=== PATIENT | female | born 1965 | race Caucasian/White ===

== ENCOUNTER 2017-10-17 10:07 | Inpatient (IN) | payer OTHER ==
[2017-10-17 10:21] VITALS: BMI 21.4
[2017-10-17] MEDS ORDERED: LOPERAMIDE HCL 2 MG CAPSULE PO PRN (11:09)
[2017-10-17] MEDS ORDERED: P-EPHED 60MG/TRIPROLIDI 2.5MG TABLET PO PRN (11:09)
[2017-10-17] MEDS ORDERED: chlordiazePOXIDE HCL 25 MG CAPSULE PO ONE ×2 (11:09→14:30)
[2017-10-17] MEDS ORDERED: IBUPROFEN 400 MG TABLET (FP) PO PRN (11:09)
[2017-10-17] MEDS ORDERED: MENTHOL/PHENOL 1 EACH UD MM PRN (11:09)
[2017-10-17] MEDS ORDERED: hydrOXYzine PAMOATE 50 MG CAPSULE (FP) PO PRN (11:09)
[2017-10-17] MEDS ORDERED: chlordiazePOXIDE HCL 25 MG CAPSULE PO PRN (11:09)
[2017-10-17] MEDS ORDERED: MAGNESIUM HYDROX 2400MG/30ML ORAL SUSPENSION 30 ML CUP PO PRN (11:09)
[2017-10-17] MEDS ORDERED: guaiFENesin/D-METHORPHAN HB 10 ML UNIT-DOSE CUPS PO PRN (11:09)
[2017-10-17] MEDS ORDERED: ACETAMINOPHEN 325 MG TABLET (FP) PO PRN (11:09)
[2017-10-17] MEDS ORDERED: MAGNESIUM CITRATE 300 ML BOTTLE PO PRN (11:09)
[2017-10-17] MEDS ORDERED: MAG HYDROX/AL HYDROX/SIMETH 30 ML UNIT-DOSE CUP PO PRN (11:09)
--- NOTE | 2017-10-17 11:09 | HP ---
CIWA Score - CIWA Score Nausea/Vomitin Muscle Tremors: 3 Anxiety: 3 Agitation: 3 Paroxysmal Sweats: 3 Orientation: 0-Oriented Tacttile Disturbances: 0-None Auditory Disturbances: 0-None Visual Disturbances: 0-None Headache: 0-None Present CIWA-Ar Total Score: 15 Admission ROS S - HPI Chief Complaint: alcohol withdrawal sx Allergies/Adverse Reactions: Allergies Allergy/AdvReac Type Severity Reaction Status Date / Time No Known Allergies Allergy Verified 10/17/17 11:02 History of Present Illness: 51yo f with h/o oud on otp 90mg daily ldm 10/15 (missed 2 days) was not medicated this a, requesting inpatient detoxifcation from alchol because of alcoholwithdrawal sx. no h/o seizures, no DTS reports cocaine and heroin use when she misses her methadone dose no IDU no OD. no SI, no suicide attempts in pastt. reports recent wt loss. Exam Limitations: No Limitations - Ebola screening Have you traveled outside of the country in the last 21 days: No Have you had contact with anyone from an Ebola affected area: No Have you been sick,other than usual withdrawal symptoms: No Do you have a fever: No - Review of Systems Constitutional: Chills, Diaphoresis, Night Sweats, Changes in sleep, Weakness, Unintentional Wgt. Loss EENT: reports: Tearing, Nose Congestion Respiratory: reports: Cough (smokers) Cardiac: reports: No Symptoms Reported GI: reports: Constipated, Diarrhea, Poor Appetite, Poor Fluid Intake, Vomiting, Indigestion, Abdominal cramping : reports: No Symptoms Reported Musculoskeletal: reports: Back Pain, Joint Pain, Muscle Pain, Neck Pain Integumentary: reports: Flushing, Sweating Neuro: reports: Tremors, Weakness Endocrine: reports: Increased Thirst Hematology: reports: No Symptoms Reported Psychiatric: reports: Judgement Intact, Mood/Affect Appropiate, Orientated x3, Anxious, Depressed Other Systems: Reviewed and Negative Patient History - Patient Medical History Hx Anemia: No Hx Asthma: No Hx Chronic Obstructive Pulmonary Disease (COPD): No Hx Cancer: No Hx Cardiac Disorders: No Hx Congestive Heart Failure: No Hx Hypertension: No Hx Hypercholesterolemia: No Hx Pacemaker: No HX Cerebrovascular Accident: No Hx Seizures: No Hx Dementia: No Hx Diabetes: No Hx Gastrointestinal Disorders: No Hx Liver Disease: No Hx Genitourinary Disorders: No Hx Sexually Transmitted Disorders: No Hx Renal Disease (ESRD): No Hx Thyroid Disease: No Hx Hepatitis C: No Hx Depression: Yes Hx Suicide Attempt: No Hx Bipolar Disorder: No (not on meds) Hx Schizophrenia: No - Patient Surgical History Past Surgical History: No Anesthesia Reaction: No - PPD History Previous Implant?: Yes Documented Results: Negative w/o proof Implanted On Prior R Admission?: Yes PPD to be Administered?: Yes - Reproductive History Patient is a Female of Child Bearing Age (11 -55 yrs old): Yes Patient : No - Smoking Cessation Smoking history: Current every day smoker Have you smoked in the past 12 months: Yes Aproximately how many cigarettes per day: 21 Hx Chewing Tobacco Use: No Initiated information on smoking cessation: Yes 'Breaking Loose' booklet given: 10/17/17 - Substance & Tx. History Hx Alcohol Use: Yes Hx Substance Use: Yes Substance Use Type: Alcohol, Cocaine, Heroin, Opiates, Prescribed, Tranquilizers Hx [facility] - Substances Abused Alcohol Route: Oral Frequency: Daily Amount used: RUM(2 pints) Age of first use: 21 Date of Last Use: 10/16/17 Cocaine Route: Smoking Frequency: Daily Amount used: $100 Age of first use: 21 Date of Last Use: 10/17/17 Family Disease History - Family Disease History Family History: Denies Admission Physical Exam S - Vital Signs Vital Signs: Vital Signs - 24 hr 10/17/17 10:16 Temperature 98.1 F Pulse Rate 68 Respiratory 18 Rate Blood Pressure 121/79 - Physical General Appearance: Yes: Nourished, Appropriately Dressed, Disheveled, Mild Distress, Thin, Tremorous, Irritable, Sweating, Anxious HEENTM: Yes: EOMI, Hearing grossly Normal, Normocephalic, Normal Voice, ELEONORA, Pharynx Normal, Nasal Congestion, Rhinorrhea, Other (abnormality left pupil with poor vision caytaract???) Respiratory: Yes: Within Normal Limits, Chest Non-Tender, Lungs Clear, Normal Breath Sounds, No Respiratory Distress, No Accessory Muscle Use Neck: Yes: Within Normal Limits, No masses,lesions,Nodules, Supple, Trachea in good position Breast: Yes: Breast Exam Deferred Cardiology: Yes: Within Normal Limits, Regular Rhythm, Regular Rate, S1, S2 Abdominal: Yes: Within Normal Limits, Normal Bowel Sounds, Non Tender, Flat, Soft, Increased Bowel Sounds Genitourinary: Yes: Within Normal Limits Back: Yes: Within Normal Limits, Normal Inspection Musculoskeletal: Yes: full range of Motion, Gait Steady, Pelvis Stable, Back pain, Muscle Pain, Muscle weakness Extremities: Yes: Normal Capillary Refill, Normal Range of Motion, Non-Tender, Tremors 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 intact, Fully Oriented, Motor Strength 5/5, Normal Response, Depressed Affect Integumentary: Yes: Normal Color, Warm, Diaphoresis, Moist Lymphatic: Yes: Within Normal Limits - Addiitonal Findings: withdrawal sx - Diagnostic (1) Alcohol dependence with uncomplicated withdrawal Current Visit: Yes Status: Acute (2) Anxiety Current Visit: Yes Status: Acute (3) Dehydration Current Visit: Yes Status: Acute (4) Depression Current Visit: Yes Status: Acute (5) Insomnia Current Visit: Yes Status: Acute (6) Opioid dependence on agonist therapy Current Visit: Yes Status: Acute (7) Abnormal shape of left pupil Current Visit: Yes Status: Acute Cleared for Admission [facility] - Detox or Rehab [facility] Level of Care: Medically Managed Detox Regimen/Protocol: Librium [facility] Breath Alcohol Content Breath Alcohol Content: 0 Urine Pregancy Test - Result Urine Test Results: Negative- NO Line Present Urine Drug Screen - Results Drug Screen Negative: No Urine Drug Screen Results: THOMAS-Cocaine, OPI-Opiates, MTD-Methadone, TCA- Tricyclic Antidepress
[2017-10-17] MEDS ORDERED: METHADONE HCL 10 MG TABLET PO SCH (11:15)
[2017-10-17 13:54] LABS: HEMATOCRIT 41.7 % (32.4-45.2); HEMOGLOBIN 13.4 GM/dL (10.7-15.3); MCH 30.4 pg (25.7-33.7); MCHC 32.2 g/dl (32.0-36.0); MEAN CELL VOLUME 94.6 fl (80-96); MEAN PLT VOLUME 10.8 fl (7.5-11.1); PLATELET COUNT 211 K/MM3 (134-434); RBC 4.41 M/mm3 (3.60-5.2); RDW 13.4 % (11.6-15.6); WHITE BLOOD COUNT 7.2 K/mm3 (4.0-10.0)
[2017-10-17 14:08] LABS: ALBUMIN 3.4 g/dl (3.4-5.0); ALK PHOS 88 U/L (45-117); ANION GAP 7 (8-16); BILIRUBIN,TOTAL 0.2 mg/dL (0.2-1.0); BLOOD UREA NITROGEN 16 mg/dL (7-18); CALCIUM 9.2 mg/dL (8.5-10.1); CHLORIDE 106 mmol/L (98-107); CO2 30 mmol/L (21-32); CREATININE 0.9 mg/dL (0.55-1.02); GLUCOSE,RANDOM 69 mg/dL (74-106); POTASSIUM 4.4 mmol/L (3.5-5.1); SGOT/AST 15 U/L (15-37); SGPT/ALT 19 U/L (12-78); SODIUM 143 mmol/L (136-145); TOT PROT 7.2 g/dl (6.4-8.2)
[2017-10-17] MEDS: NICOTINE 21 MG/24 HOURS TOPICAL PATCH TD SCH (14:31)
[2017-10-17] MEDS ORDERED: METHADONE HCL 10 MG TABLET ONE (15:19)
[2017-10-17] MEDS ORDERED: METHADONE HCL 40 MG DISPERSABLE TABLET ONE (15:19)
[2017-10-17 15:21] LABS: SICKLE CELL SCREEN NEGATIVE (NEGATIVE)
[2017-10-17] MEDS: METHADONE 80 MG, METHADONE 10 MG PO SCH (15:21)
--- NOTE | 2017-10-17 15:28 | CONSULT ---
[facility] Psychiatric Consult - Data Date of interview: 10/17/17 Admission source: [facility] Identifying data: Pt. is a 51 year old female, mother of five and currently unemployed. This is patient's first admission to [facility]. Pt admitted to for alcohol, cocaine, and opiate dependence. Substance Abuse History: Smoking Cessation. Smoking history: Current every day smoker. Have you smoked in the past 12 months: Yes. Aproximately how many cigarettes per day: 21. Hx Chewing Tobacco Use: No. Initiated information on smoking cessation: Yes. 'Breaking Loose' booklet given: 10/17/17. - Substance & Tx. History. Hx Alcohol Use: Yes. Hx Substance Use: Yes. Substance Use Type : Alcohol, Cocaine, Heroin, Opiates, Prescribed, Tranquilizers. Hx Substance Use [facility]: [facility] - Substances Abused. Alcohol. Route: Oral. Frequency: Daily. Amount used: RUM(2 pints). Age of first use: 21. Date of Last Use: 10/16/17. Cocaine. Route: Smoking. Frequency: Daily. Amount used: $100. Age of first use: 21. Date of Last Use: 10/17/17 Medical History: Denies. Psychiatric History: Pt. denies h/o psychiatric hospitalization, OPC, and suicide attempts. Physical/Sexual Abuse/Trauma History: Denies. Additional Comment: Urine Drug Screen Results: THOMAS-Cocaine, OPI-Opiates, MTD- Methadone, TCA-Tricyclic Antidepress Mental Status Exam - Mental Status Exam Alert and Oriented to: Time, Place, Person Cognitive Function: Good Patient Appearance: Well Groomed Mood: Hopeful Affect: Mood Congruent Patient Behavior: Appropriate, Cooperative Speech Pattern: Appropriate Voice Loudness: Normal Thought Process: Goal Oriented Thought Disorder: Not Present Hallucinations: Denies Suicidal Ideation: Denies Homicidal Ideation: Denies Insight/Judgement: Poor Sleep: Poorly Appetite: Fair Muscle strength/Tone: Normal Gait/Station: Normal Psychiatric Findings - Problem List ([place] 1, 2,3) (1) Alcohol dependence with uncomplicated withdrawal Current Visit: Yes Status: Acute (2) Insomnia Current Visit: Yes Status: Acute (3) Opioid dependence on agonist therapy Current Visit: Yes Status: Acute - Initial Treatment Plan Initial Treatment Plan: Psychoeducation provided. Detoxification in progress. Ambien 10mg qhs prn ordered for insomnia. Benefits and side effects (sleep walking) discussed. Verbal consent given. Will continue to monitor.
[2017-10-17] MEDS: chlordiazePOXIDE HCL 25 MG CAPSULE PO SCH ×2 (18:00→22:42)
[2017-10-17] MEDS: THIAMINE HCL 100 MG TABLET (FP) PO SCH (22:42)
[2017-10-17] MEDS: ZOLPIDEM TARTRATE 10 MG TABLET (PARK CARE ONLY) PO PRN (22:42)
[2017-10-18] MEDS ORDERED: METHADONE HCL 10 MG TABLET ONE (05:30)
[2017-10-18] MEDS ORDERED: METHADONE HCL 40 MG DISPERSABLE TABLET ONE (05:30)
[2017-10-18] MEDS: chlordiazePOXIDE HCL 25 MG CAPSULE PO SCH ×4 (06:00→22:19)
[2017-10-18] MEDS: METHADONE 80 MG, METHADONE 10 MG PO SCH (06:01)
[2017-10-18 09:58] LABS: URINE APPEARANCE CLOUDY; URINE BILIRUBIN NEGATIVE (NEGATIVE); URINE BLOOD NEGATIVE (NEGATIVE); URINE COLOR YELLOW; URINE GLUCOSE (UA) NEGATIVE (NEGATIVE); URINE KETONE NEGATIVE (NEGATIVE); URINE LEUK ESTERASE NEGATIVE (NEGATIVE); URINE NITRITE NEGATIVE (NEGATIVE); URINE PROTEIN NEGATIVE (NEGATIVE)
[2017-10-18] MEDS: NICOTINE 21 MG/24 HOURS TOPICAL PATCH TD SCH (10:37)
[2017-10-18] MEDS: PRENATAL VITAMINS W/ FOLIC ACID TABLET (FP) PO SCH (10:38)
--- NOTE | 2017-10-18 11:19 | PN ---
S CIWA - CIWA Score Nausea/Vomitin-Mild Nausea/No Vomiting Muscle Tremors: 3 Anxiety: 4-Mod. Anxious/Guarded Agitation: 3 Paroxysmal Sweats: 3 Orientation: 0-Oriented Tacttile Disturbances: 0-None Auditory Disturbances: 0-None Visual Disturbances: 0-None Headache: 0-None Present CIWA-Ar Total Score: 14 BHS Progress Note (SOAP) Subjective: Sweating,anxiety,tremors,interrupted sleep,restless Objective: 10/18/17 11:18 Vital Signs - 8 hr 10/18/17 10/18/17 03:30 06:00 Temperature 97.7 F Pulse Rate 90 Respiratory 18 18 Rate Blood Pressure 131/73 Laboratory Tests 10/17/17 10/17/17 10/17/17 12:30 12:30 12:30 WBC 7.2 RBC 4.41 Hgb 13.4 Hct 41.7 MCV 94.6 MCH 30.4 MCHC 32.2 RDW 13.4 Plt Count 211 MPV 10.8 Sickle Cell Screen Negative Sodium 143 Potassium 4.4 Chloride 106 Carbon Dioxide 30 Anion Gap 7 L BUN 16 Creatinine 0.9 Creat Clearance w eGFR > 60 Random Glucose 69 L Calcium 9.2 Total Bilirubin 0.2 AST 15 ALT 19 Alkaline Phosphatase 88 Total Protein 7.2 Albumin 3.4 Urine Color Urine Appearance Urine pH Ur Specific [place] Urine Protein Urine Glucose (UA) Urine Ketones Urine Blood Urine Nitrite Urine Bilirubin Urine Urobilinogen Ur Leukocyte Esterase RPR Titer Hepatitis C Antibody <0.1 HIV 1&2 Antibody Screen HIV P24 Antigen 10/17/17 10/17/17 10/18/17 12:30 12:30 07:40 WBC RBC Hgb Hct MCV MCH MCHC RDW Plt Count MPV Sickle Cell Screen Sodium Potassium Chloride Carbon Dioxide Anion Gap BUN Creatinine Creat Clearance w eGFR Random Glucose Calcium Total Bilirubin AST ALT Alkaline Phosphatase Total Protein Albumin Urine Color Yellow Urine Appearance Cloudy Urine pH 5.0 Ur Specific [place] 1.029 Urine Protein Negative Urine Glucose (UA) Negative Urine Ketones Negative Urine Blood Negative Urine Nitrite Negative Urine Bilirubin Negative Urine Urobilinogen 2.0 H Ur Leukocyte Esterase Negative RPR Titer Nonreactive Hepatitis C Antibody HIV 1&2 Antibody Screen Negative HIV P24 Antigen Negative labs noted Assessment: 10/18/17 11:19 Withdrawal sx. Plan: Continue detox
--- NOTE | 2017-10-18 12:29 | EKG ---
Test Reason : Blood Pressure : / mmHG Vent. Rate : 065 BPM Atrial Rate : 065 BPM P-R Int : 126 ms QRS Dur : 084 ms QT Int : 408 ms P-R-T Axes : 066 039 044 degrees QTc Int : 424 ms NORMAL SINUS RHYTHM MINIMAL VOLTAGE CRITERIA FOR LVH, MAY BE NORMAL VARIANT BORDERLINE ECG NO PREVIOUS ECGS AVAILABLE Confirmed by MD INGRID, ABDOULAYE ([id number]) on 10/18/2017 12:28:41 PM Referred By: Confirmed By:ABDOULAYE QUINTERO MD
[2017-10-18] MEDS: THIAMINE HCL 100 MG TABLET (FP) PO SCH (22:19)
[2017-10-18] MEDS: ZOLPIDEM TARTRATE 10 MG TABLET (PARK CARE ONLY) PO PRN (22:19)
[2017-10-19] MEDS ORDERED: METHADONE HCL 40 MG DISPERSABLE TABLET ONE (04:43)
[2017-10-19] MEDS ORDERED: METHADONE HCL 10 MG TABLET ONE (04:44)
[2017-10-19] MEDS: METHADONE 80 MG, METHADONE 10 MG PO SCH (05:28)
[2017-10-19] MEDS: chlordiazePOXIDE HCL 25 MG CAPSULE PO SCH ×2 (05:29→10:55)
[2017-10-19] MEDS: NICOTINE 21 MG/24 HOURS TOPICAL PATCH TD SCH (10:55)
[2017-10-19] MEDS: PRENATAL VITAMINS W/ FOLIC ACID TABLET (FP) PO SCH (10:55)
--- NOTE | 2017-10-19 11:09 | PN ---
[facility] CIWA - CIWA Score Nausea/Vomitin-No Nausea/No Vomiting Muscle Tremors: 3 Anxiety: 3 Agitation: 3 Paroxysmal Sweats: 1-Minimal Palms Moist Orientation: 0-Oriented Tacttile Disturbances: 1-Very Mild Itch/Numbness Auditory Disturbances: 0-None Visual Disturbances: 0-None Headache: 0-None Present CIWA-Ar Total Score: 11 BHS Progress Note (SOAP) Subjective: sweat anxiety tremor Objective: 10/19/17 11:08 Vital Signs Temperature 97.9 F 10/19/17 10:00 Pulse Rate 72 10/19/17 10:00 Respiratory Rate 20 10/19/17 10:00 Blood Pressure 128/62 10/19/17 10:00 O2 Sat by Pulse Oximetry (%) Laboratory Last Values WBC 7.2 K/mm3 (4.0-10.0) 10/17/17 12:30 RBC 4.41 M/mm3 (3.60-5.2) 10/17/17 12:30 Hgb 13.4 GM/dL (10.7-15.3) 10/17/17 12:30 Hct 41.7 % (32.4-45.2) 10/17/17 12:30 MCV 94.6 fl (80-96) 10/17/17 12:30 MCH 30.4 pg (25.7-33.7) 10/17/17 12:30 MCHC 32.2 g/dl (32.0-36.0) 10/17/17 12:30 RDW 13.4 % (11.6-15.6) 10/17/17 12:30 Plt Count 211 K/MM3 (134-434) 10/17/17 12:30 MPV 10.8 fl (7.5-11.1) 10/17/17 12:30 Sickle Cell Screen Negative (NEGATIVE) 10/17/17 12:30 Sodium 143 mmol/L (136-145) 10/17/17 12:30 Potassium 4.4 mmol/L (3.5-5.1) 10/17/17 12:30 Chloride 106 mmol/L (98-107) 10/17/17 12:30 Carbon Dioxide 30 mmol/L (21-32) 10/17/17 12:30 Anion Gap 7 (8-16) L 10/17/17 12:30 BUN 16 mg/dL (7-18) 10/17/17 12:30 Creatinine 0.9 mg/dL (0.55-1.02) 10/17/17 12:30 Creat Clearance w eGFR > 60 (>60) 10/17/17 12:30 Random Glucose 69 mg/dL (74-106) L 10/17/17 12:30 Calcium 9.2 mg/dL (8.5-10.1) 10/17/17 12:30 Total Bilirubin 0.2 mg/dL (0.2-1.0) 10/17/17 12:30 AST 15 U/L (15-37) 10/17/17 12:30 ALT 19 U/L (12-78) 10/17/17 12:30 Alkaline Phosphatase 88 U/L (45-117) 10/17/17 12:30 Total Protein 7.2 g/dl (6.4-8.2) 10/17/17 12:30 Albumin 3.4 g/dl (3.4-5.0) 10/17/17 12:30 Urine Color Yellow 10/18/17 07:40 Urine Appearance Cloudy 10/18/17 07:40 Urine pH 5.0 (5.0-8.0) 10/18/17 07:40 Ur Specific [place] 1.029 (1.001-1.035) 10/18/17 07:40 Urine Protein Negative (NEGATIVE) 10/18/17 07:40 Urine Glucose (UA) Negative (NEGATIVE) 10/18/17 07:40 Urine Ketones Negative (NEGATIVE) 10/18/17 07:40 Urine Blood Negative (NEGATIVE) 10/18/17 07:40 Urine Nitrite Negative (NEGATIVE) 10/18/17 07:40 Urine Bilirubin Negative (NEGATIVE) 10/18/17 07:40 Urine Urobilinogen 2.0 mg/dL (0.2-1.0) H 10/18/17 07:40 Ur Leukocyte Esterase Negative (NEGATIVE) 10/18/17 07:40 RPR Titer Nonreactive (NONREACTIVE) 10/17/17 12:30 Hepatitis C Antibody <0.1 s/co ratio (0.0-0.9) 10/17/17 12:30 HIV 1&2 Antibody Screen Negative 10/17/17 12:30 HIV P24 Antigen Negative 10/17/17 12:30 lab noted Assessment: 10/19/17 11:09 withdrawal sx Plan: continue detox
[2017-10-19] MEDS: chlordiazePOXIDE 5 MG CAPSULE PO SCH ×2 (17:04→22:39)
[2017-10-19] MEDS: ZOLPIDEM TARTRATE 10 MG TABLET (PARK CARE ONLY) PO PRN (22:38)
[2017-10-19] MEDS: THIAMINE HCL 100 MG TABLET (FP) PO SCH (22:38)
[2017-10-20] MEDS ORDERED: METHADONE HCL 40 MG DISPERSABLE TABLET ONE (04:03)
[2017-10-20] MEDS ORDERED: METHADONE HCL 10 MG TABLET ONE (04:03)
[2017-10-20] MEDS: chlordiazePOXIDE 5 MG CAPSULE PO SCH ×2 (05:26→11:04)
[2017-10-20] MEDS: METHADONE 80 MG, METHADONE 10 MG PO SCH (05:27)
--- NOTE | 2017-10-20 10:04 | PN ---
BHS Progress Note (SOAP) Subjective: sweat anxiety tremor Objective: 10/20/17 10:03 Vital Signs Temperature 98.1 F 10/20/17 06:21 Pulse Rate 69 10/20/17 06:21 Respiratory Rate 18 10/20/17 06:21 Blood Pressure 135/67 10/20/17 06:21 O2 Sat by Pulse Oximetry (%) Laboratory Last Values WBC 7.2 K/mm3 (4.0-10.0) 10/17/17 12:30 RBC 4.41 M/mm3 (3.60-5.2) 10/17/17 12:30 Hgb 13.4 GM/dL (10.7-15.3) 10/17/17 12:30 Hct 41.7 % (32.4-45.2) 10/17/17 12:30 MCV 94.6 fl (80-96) 10/17/17 12:30 MCH 30.4 pg (25.7-33.7) 10/17/17 12:30 MCHC 32.2 g/dl (32.0-36.0) 10/17/17 12:30 RDW 13.4 % (11.6-15.6) 10/17/17 12:30 Plt Count 211 K/MM3 (134-434) 10/17/17 12:30 MPV 10.8 fl (7.5-11.1) 10/17/17 12:30 Sickle Cell Screen Negative (NEGATIVE) 10/17/17 12:30 Sodium 143 mmol/L (136-145) 10/17/17 12:30 Potassium 4.4 mmol/L (3.5-5.1) 10/17/17 12:30 Chloride 106 mmol/L (98-107) 10/17/17 12:30 Carbon Dioxide 30 mmol/L (21-32) 10/17/17 12:30 Anion Gap 7 (8-16) L 10/17/17 12:30 BUN 16 mg/dL (7-18) 10/17/17 12:30 Creatinine 0.9 mg/dL (0.55-1.02) 10/17/17 12:30 Creat Clearance w eGFR > 60 (>60) 10/17/17 12:30 Random Glucose 69 mg/dL (74-106) L 10/17/17 12:30 Calcium 9.2 mg/dL (8.5-10.1) 10/17/17 12:30 Total Bilirubin 0.2 mg/dL (0.2-1.0) 10/17/17 12:30 AST 15 U/L (15-37) 10/17/17 12:30 ALT 19 U/L (12-78) 10/17/17 12:30 Alkaline Phosphatase 88 U/L (45-117) 10/17/17 12:30 Total Protein 7.2 g/dl (6.4-8.2) 10/17/17 12:30 Albumin 3.4 g/dl (3.4-5.0) 10/17/17 12:30 Urine Color Yellow 10/18/17 07:40 Urine Appearance Cloudy 10/18/17 07:40 Urine pH 5.0 (5.0-8.0) 10/18/17 07:40 Ur Specific [place] 1.029 (1.001-1.035) 10/18/17 07:40 Urine Protein Negative (NEGATIVE) 10/18/17 07:40 Urine Glucose (UA) Negative (NEGATIVE) 10/18/17 07:40 Urine Ketones Negative (NEGATIVE) 10/18/17 07:40 Urine Blood Negative (NEGATIVE) 10/18/17 07:40 Urine Nitrite Negative (NEGATIVE) 10/18/17 07:40 Urine Bilirubin Negative (NEGATIVE) 10/18/17 07:40 Urine Urobilinogen 2.0 mg/dL (0.2-1.0) H 10/18/17 07:40 Ur Leukocyte Esterase Negative (NEGATIVE) 10/18/17 07:40 RPR Titer Nonreactive (NONREACTIVE) 10/17/17 12:30 Hepatitis C Antibody <0.1 s/co ratio (0.0-0.9) 10/17/17 12:30 HIV 1&2 Antibody Screen Negative 10/17/17 12:30 HIV P24 Antigen Negative 10/17/17 12:30 lab noted Assessment: 10/20/17 10:03 withdrawal sx Plan: continue detox
[2017-10-20] MEDS: NICOTINE 21 MG/24 HOURS TOPICAL PATCH TD SCH (11:03)
[2017-10-20] MEDS: PRENATAL VITAMINS W/ FOLIC ACID TABLET (FP) PO SCH (11:04)
[2017-10-20] MEDS: chlordiazePOXIDE HCL 10 MG CAPSULE PO SCH ×2 (18:51→22:19)
[2017-10-20] MEDS: THIAMINE HCL 100 MG TABLET (FP) PO SCH (22:19)
[2017-10-20] MEDS: ZOLPIDEM TARTRATE 10 MG TABLET (PARK CARE ONLY) PO PRN (22:19)
[2017-10-21] MEDS ORDERED: METHADONE HCL 10 MG TABLET ONE (04:14)
[2017-10-21] MEDS ORDERED: METHADONE HCL 40 MG DISPERSABLE TABLET ONE (04:14)
[2017-10-21] MEDS: chlordiazePOXIDE HCL 10 MG CAPSULE PO SCH ×2 (05:58→11:00)
[2017-10-21] MEDS: METHADONE 80 MG, METHADONE 10 MG PO SCH (05:58)
--- NOTE | 2017-10-21 08:32 | DS ---
[facility] Detox Discharge Summary Admission Date: 10/17/17 Discharge Date: 10/21/17 - History Present History: Alcohol Dependence, [facility] Additional Comments: abnormal right eye Pertinent Past History: anxiety, depression, and insomnia, nicotine dependence - Physical Exam Results Vital Signs: Vital Signs Temperature 97.5 F L 10/21/17 06:28 Pulse Rate 66 10/21/17 06:28 Respiratory Rate 16 10/21/17 06:28 Blood Pressure 133/66 10/21/17 06:28 O2 Sat by Pulse Oximetry (%) Laboratory Tests 10/17/17 10/17/17 10/17/17 12:30 12:30 12:30 WBC 7.2 RBC 4.41 Hgb 13.4 Hct 41.7 MCV 94.6 MCH 30.4 MCHC 32.2 RDW 13.4 Plt Count 211 MPV 10.8 Sickle Cell Screen Negative Sodium 143 Potassium 4.4 Chloride 106 Carbon Dioxide 30 Anion Gap 7 L BUN 16 Creatinine 0.9 Creat Clearance w eGFR > 60 Random Glucose 69 L Calcium 9.2 Total Bilirubin 0.2 AST 15 ALT 19 Alkaline Phosphatase 88 Total Protein 7.2 Albumin 3.4 Urine Color Urine Appearance Urine pH Ur Specific [place] Urine Protein Urine Glucose (UA) Urine Ketones Urine Blood Urine Nitrite Urine Bilirubin Urine Urobilinogen Ur Leukocyte Esterase RPR Titer Hepatitis C Antibody <0.1 HIV 1&2 Antibody Screen HIV P24 Antigen 10/17/17 10/17/17 10/18/17 12:30 12:30 07:40 WBC RBC Hgb Hct MCV MCH MCHC RDW Plt Count MPV Sickle Cell Screen Sodium Potassium Chloride Carbon Dioxide Anion Gap BUN Creatinine Creat Clearance w eGFR Random Glucose Calcium Total Bilirubin AST ALT Alkaline Phosphatase Total Protein Albumin Urine Color Yellow Urine Appearance Cloudy Urine pH 5.0 Ur Specific [place] 1.029 Urine Protein Negative Urine Glucose (UA) Negative Urine Ketones Negative Urine Blood Negative Urine Nitrite Negative Urine Bilirubin Negative Urine Urobilinogen 2.0 H Ur Leukocyte Esterase Negative RPR Titer Nonreactive Hepatitis C Antibody HIV 1&2 Antibody Screen Negative HIV P24 Antigen Negative Pertinent Admission Physical Exam Findings: withdrawal sx - Treatment Hospital Course: Detox Protocol Followed, Detoxed Safely, Responded well, Discharged Condition Good, Rehab Referral Accepted Patient has Accepted a Rehab Referral to: return to [facility] - Medication Discharge Medications: Ambulatory Orders Methadone [Dolophine -] 90 mg PO DAILY 10/17/17 - Diagnosis (1) Alcohol dependence with uncomplicated withdrawal Current Visit: Yes Status: Acute (2) Anxiety Current Visit: Yes Status: Acute (3) Dehydration Current Visit: Yes Status: Acute (4) Depression Current Visit: Yes Status: Acute (5) Insomnia Current Visit: Yes Status: Acute (6) Opioid dependence on agonist therapy Current Visit: Yes Status: Acute (7) Abnormal shape of left pupil Current Visit: Yes Status: Acute - AMA Did Patient Leave Against Medical Advice: No
[2017-10-21 10:20] VITALS: BP 95/61; PULSE 71; TEMP 98.4
[2017-10-21] MEDS: NICOTINE 21 MG/24 HOURS TOPICAL PATCH TD SCH (11:00)
[2017-10-21] MEDS: PRENATAL VITAMINS W/ FOLIC ACID TABLET (FP) PO SCH (11:00)
== END 2017-10-21 13:00 | disposition home or self-care (01) | DRG 773 ==
LOC: YASAS 10:07 → Y6N 12:47
PROVIDERS: ADMIT Internal Medicine; ATTEND Internal Medicine
PROC: HZ2ZZZZ Detoxification Services for Substance Abuse Treatment (ICD-10-PCS; principal; 2017-10-17)
DX: F10.230 Alcohol dependence with withdrawal, uncomplicated (principal); F11.20 Opioid dependence, uncomplicated; F41.9 Anxiety disorder, unspecified; F32.9 Major depressive disorder, single episode, unspecified; E86.0 Dehydration; G47.00 Insomnia, unspecified; H21.562 Pupillary abnormality, left eye
CPT/HCPCS: 36415; 80053; 81003; 85027; 85660; 86593; 86803; 87389; 93005; 93010

== ENCOUNTER 2022-02-26 14:31 | Emergency (ER) | payer OTHER ==
[2022-02-26 15:04] VITALS: BP 155/80; PULSE 72; TEMP 98.2; BMI 40.6
[2022-02-26] MEDS ORDERED: IBUPROFEN 600 MG TABLET (FP) PO ONE ×2 (16:33→16:34)
== END 2022-02-26 18:52 | disposition home or self-care (01) ==
LOC: JERFT 14:31
PROC: 2W3RX1Z Immobilization of Left Lower Leg using Splint (ICD-10-PCS; principal; 2022-02-26)
DX: S99.192A Other physeal fracture of left metatarsal, initial encounter for closed fracture (principal); W10.8XXA Fall (on) (from) other stairs and steps, initial encounter
CPT/HCPCS: 73610-TC-LT-FY; 73630-TC-LT; 99283-25

== ENCOUNTER 2023-03-23 15:16 | Inpatient (IN) | payer OTHER ==
[2023-03-23] MEDS ORDERED: NALOXONE HCL 0.4 MG/ML VIAL ONE ×3 (15:35→17:48)
[2023-03-23] MEDS ORDERED: NALOXONE HCL 0.4 MG/ML VIAL IVPUSH ONE ×4 (15:42→17:46)
[2023-03-23] MEDS ORDERED: SODIUM CHLORIDE 1,000 ML IV STA (16:20)
[2023-03-23 16:53] LABS: VENOUS BASE EXCESS -4.7 mmol/L (-2-2); VENOUS O2 SATURATION 79.9 % (70-80); VENOUS PCO2 43.8 mmHg (38-52); VENOUS PH 7.307 (7.310-7.410)
[2023-03-23] MEDS ORDERED: DEXTROSE 50%-WATER - 25 GM/50 ML VIAL IVPUSH ONE (16:53)
[2023-03-23] MEDS ORDERED: DEXTROSE 50%-WATER 25 GM/50 ML DISP.SYRIN ONE (16:53)
[2023-03-23 17:04] LABS: BASO % 0.3 % (0-2.0); EOS % 1.1 % (0-4.5); HEMOGLOBIN 10.8 GM/dL (10.7-15.3); LYMPH % 14.4 % (8-40); MCH 30.3 pg (25.7-33.7); MCHC 32.6 g/dl (32.0-36.0); MEAN CELL VOLUME 92.9 fl (80-96); MEAN PLT VOLUME 9.1 fl (7.5-11.1); MONO % 4.3 % (3.8-10.2); NEUT % 79.9 % (42.8-82.8); PLATELET COUNT 266 10^3/uL (134-434); RBC 3.56 M/mm3 (3.60-5.2); WHITE BLOOD COUNT 12.5 K/mm3 (4.0-10.0)
[2023-03-23] MEDS ORDERED: SODIUM CHLORIDE 0.9% 500 ML INFUS.BAG IV ONE (17:06)
[2023-03-23 17:18] LABS: CHLORIDE 112 mmol/L (98-107); POTASSIUM 3.7 mmol/L (3.5-5.1); SODIUM 147 mmol/L (136-145)
[2023-03-23 17:20] LABS: CALCIUM 9.5 mg/dL (8.5-10.1)
[2023-03-23 17:21] LABS: ALBUMIN 3.2 g/dl (3.4-5.0); ANION GAP 13 MMOL/L (8-16); BLOOD UREA NITROGEN 31.9 mg/dL (7-18); CO2 22 mmol/L (21-32); GLUCOSE,RANDOM 65 mg/dL (74-106)
[2023-03-23 17:24] LABS: CREATININE 5.5 mg/dL (0.55-1.3); SGOT/AST 69 U/L (15-37); SGPT/ALT 36 U/L (13-61)
[2023-03-23 17:25] LABS: BILIRUBIN,TOTAL 0.5 mg/dL (0.2-1); TOT PROT 6.6 g/dl (6.4-8.2)
[2023-03-23 17:26] LABS: ALK PHOS 97 U/L (45-117)
[2023-03-23] MEDS ORDERED: NALOXONE HCL 2 MG in DEXTROSE 5%-WATER - 495 ML IV SCH (18:00)
[2023-03-23] MEDS ORDERED: ONDANSETRON 4 MG/2 ML VIAL IVPUSH PRN (18:11)
[2023-03-23] MEDS ORDERED: LACTATED RINGERS SOLUTION 1,000 ML/1,000 ML INFUS.BAG IV SCH (18:30)
[2023-03-23 18:50] LABS: VENOUS BASE EXCESS -5.4 mmol/L (-2-2); VENOUS O2 SATURATION 89.5 % (70-80); VENOUS PCO2 38.1 mmHg (38-52); VENOUS PH 7.335 (7.310-7.410)
[2023-03-23] MEDS: NALOXONE HCL 2 MG in DEXTROSE 5%-WATER - 495 ML IV SCH ×2 (18:50→22:06)
[2023-03-23 19:07] LABS: EPI CELLS 9 /uL (0-25.1); HYALINE CASTS 2 /uL (0-3.1); PH,URINE 5.5 (5.0-8.0); URINE APPEARANCE CLEAR; URINE BACTERIA 307 /uL (0-1359); URINE BILIRUBIN NEGATIVE (NEGATIVE); URINE COLOR YELLOW; URINE GLUCOSE (UA) NEGATIVE (NEGATIVE); URINE KETONE TRACE (NEGATIVE); URINE LEUK ESTERASE NEGATIVE (NEGATIVE); URINE NITRITE NEGATIVE (NEGATIVE); URINE PROTEIN 1+ (NEGATIVE); URINE RBC 128 /uL (0-23.9)
[2023-03-23 19:23] LABS: YEAST PRESENT (NEGATIVE)
[2023-03-23 19:25] LABS: N-TERMINAL BNP 101.1 pg/ml (5-125)
[2023-03-23 19:56] LABS: URINE BARBITURATES NEGATIVE (NEGATIVE)
[2023-03-23 19:57] LABS: COCAINE, UR NEGATIVE (NEGATIVE); URINE AMPHETAMINES NEGATIVE (NEGATIVE)
[2023-03-23 20:02] LABS: METHADONE, UR POSITIVE (NEGATIVE); OPIATES, URI POSITIVE (NEGATIVE); PHENCYCLIDINE,URINE NEGATIVE (NEGATIVE); URINE BENZODIAZEPINES POSITIVE (NEGATIVE)
[2023-03-23] MEDS: DEXMEDETOMIDINE PREMIX 400 MCG/100 ML BAG IVPB SCH (21:15)
[2023-03-23] MEDS: HEPARIN NA (PORCINE) 5,000 UNITS/ML 1ML VIAL SQ SCH (21:22)
[2023-03-23] MEDS: CHLORHEXIDINE GLUCONATE 4% CLEANSER FOR DECOLONIZATION TP SCH (21:23)
[2023-03-23] MEDS: THIAMINE HCL 200 MG/2 ML VIAL IVPB SCH (21:23)
[2023-03-23] MEDS: MUPIROCIN 2% TOPICAL OINTMENT FOR DECOLONIZATION NS SCH (21:23)
[2023-03-24] MEDS: DEXMEDETOMIDINE PREMIX 400 MCG/100 ML BAG IVPB SCH ×2 (00:47→03:56)
[2023-03-24] MEDS: NALOXONE HCL 2 MG in DEXTROSE 5%-WATER - 495 ML IV SCH (01:50)
[2023-03-24] MEDS ORDERED: NALOXONE HCL 2 MG in DEXTROSE 5%-WATER - 495 ML IV SCH (05:02)
[2023-03-24] MEDS: HEPARIN NA (PORCINE) 5,000 UNITS/ML 1ML VIAL SQ SCH ×3 (05:19→21:44)
[2023-03-24 06:53] LABS: BASO % 0.4 % (0-2.0); EOS % 1.6 % (0-4.5); HEMATOCRIT 35.4 % (32.4-45.2); HEMOGLOBIN 11.4 GM/dL (10.7-15.3); LYMPH % 21.4 % (8-40); MCH 30.4 pg (25.7-33.7); MCHC 32.2 g/dl (32.0-36.0); MEAN CELL VOLUME 94.4 fl (80-96); MEAN PLT VOLUME 9.8 fl (7.5-11.1); MONO % 5.2 % (3.8-10.2); NEUT % 71.4 % (42.8-82.8); PLATELET COUNT 268 10^3/uL (134-434); RBC 3.75 M/mm3 (3.60-5.2); RDW 13.2 % (11.6-15.6); WHITE BLOOD COUNT 10.3 K/mm3 (4.0-10.0)
[2023-03-24 07:12] LABS: POTASSIUM 4.6 mmol/L (3.5-5.1)
[2023-03-24 07:14] LABS: CALCIUM 9.1 mg/dL (8.5-10.1)
[2023-03-24 07:15] LABS: BLOOD UREA NITROGEN 22.2 mg/dL (7-18); MAGNESIUM 2.1 mg/dL (1.8-2.4)
[2023-03-24 07:18] LABS: CREATININE 2.3 mg/dL (0.55-1.3)
[2023-03-24] MEDS: THIAMINE HCL 200 MG/2 ML VIAL IVPB SCH (09:04)
[2023-03-24] MEDS: MUPIROCIN 2% TOPICAL OINTMENT FOR DECOLONIZATION NS SCH ×2 (09:06→21:46)
[2023-03-24] MEDS ORDERED: PANTOPRAZOLE SODIUM 40 MG VIAL IVPUSH SCH (10:00)
[2023-03-24] MEDS ORDERED: FOLIC ACID 5 MG/1 ML SQ SCH (10:00)
[2023-03-24] MEDS ORDERED: methaDONE HCL 10 MG TABLET PO SCH (12:00)
[2023-03-24 13:28] VITALS: BMI 40.3
[2023-03-24] MEDS: SODIUM CHLORIDE 0.45% 1,000 ML IV SCH (14:07)
[2023-03-24] MEDS: CHLORHEXIDINE GLUCONATE 4% CLEANSER FOR DECOLONIZATION TP SCH (21:39)
[2023-03-24] MEDS: AMITRIPTYLINE HCL 25 MG TABLET PO SCH (21:45)
[2023-03-24] MEDS: BRIMONIDINE TARTRATE 0.2% OPHTHALMIC 5 ML BOTTLE OU SCH (21:46)
[2023-03-24] MEDS: DORZOLAMIDE 2% HCL OPHTHALMIC SOLUTION 10 ML BOTTLE OU SCH (21:47)
[2023-03-24] MEDS: LATANOPROST 0.005% OPHTH SOLN 2.5ML BOTTLE OU SCH (21:48)
[2023-03-25] MEDS: SODIUM CHLORIDE 0.45% 1,000 ML IV SCH ×2 (01:50→19:15)
[2023-03-25] MEDS: HEPARIN NA (PORCINE) 5,000 UNITS/ML 1ML VIAL SQ SCH ×3 (05:56→22:47)
[2023-03-25] MEDS: BRIMONIDINE TARTRATE 0.2% OPHTHALMIC 5 ML BOTTLE OU SCH ×3 (05:57→22:47)
[2023-03-25] MEDS: DORZOLAMIDE 2% HCL OPHTHALMIC SOLUTION 10 ML BOTTLE OU SCH ×3 (05:57→22:47)
[2023-03-25 07:19] LABS: HEMATOCRIT 30.6 % (32.4-45.2); HEMOGLOBIN 9.9 GM/dL (10.7-15.3); MCH 30.7 pg (25.7-33.7); MCHC 32.2 g/dl (32.0-36.0); MEAN CELL VOLUME 95.5 fl (80-96); MEAN PLT VOLUME 9.7 fl (7.5-11.1); PLATELET COUNT 206 10^3/uL (134-434); RBC 3.21 M/mm3 (3.60-5.2); RDW 13.5 % (11.6-15.6); WHITE BLOOD COUNT 5.1 K/mm3 (4.0-10.0)
[2023-03-25 07:41] LABS: POTASSIUM 4.1 mmol/L (3.5-5.1)
[2023-03-25 07:47] LABS: CALCIUM 8.6 mg/dL (8.5-10.1)
[2023-03-25 07:48] LABS: BLOOD UREA NITROGEN 15.8 mg/dL (7-18)
[2023-03-25 07:51] LABS: BILIRUBIN,TOTAL 0.2 mg/dL (0.2-1); CREATININE 1.2 mg/dL (0.55-1.3); TOT PROT 5.6 g/dl (6.4-8.2)
[2023-03-25 08:05] LABS: ALBUMIN 2.4 g/dl (3.4-5.0)
[2023-03-25] MEDS: THIAMINE HCL 200 MG/2 ML VIAL IVPB SCH (09:20)
[2023-03-25] MEDS: FOLIC ACID 1 MG TABLET (FP) PO SCH (09:23)
[2023-03-25] MEDS: AMITRIPTYLINE HCL 25 MG TABLET PO SCH ×2 (09:23→22:48)
[2023-03-25] MEDS: LISINOPRIL 20 MG TABLET PO SCH (09:23)
[2023-03-25] MEDS: MUPIROCIN 2% TOPICAL OINTMENT FOR DECOLONIZATION NS SCH ×2 (09:26→22:48)
[2023-03-25] MEDS ORDERED: MELATONIN 5 MG TABLETS PO SCH (22:00)
[2023-03-25] MEDS: LATANOPROST 0.005% OPHTH SOLN 2.5ML BOTTLE OU SCH (22:47)
[2023-03-25] MEDS: CHLORHEXIDINE GLUCONATE 4% CLEANSER FOR DECOLONIZATION TP SCH (22:48)
[2023-03-26] MEDS ORDERED: HEPARIN NA (PORCINE) 5,000 UNITS/ML 1ML VIAL SQ SCH (06:00)
[2023-03-26 06:56] VITALS: RESP 18
[2023-03-26] MEDS: DORZOLAMIDE 2% HCL OPHTHALMIC SOLUTION 10 ML BOTTLE OU SCH (07:40)
[2023-03-26] MEDS: BRIMONIDINE TARTRATE 0.2% OPHTHALMIC 5 ML BOTTLE OU SCH (07:40)
[2023-03-26 08:57] VITALS: BP 100/56; PULSE 78; TEMP 98.6
[2023-03-26 09:05] LABS: BASO % 0.5 % (0-2.0); HEMOGLOBIN 10.8 GM/dL (10.7-15.3); LYMPH % 38.4 % (8-40); MCH 30.4 pg (25.7-33.7); MCHC 32.8 g/dl (32.0-36.0); MEAN CELL VOLUME 92.9 fl (80-96); MEAN PLT VOLUME 9.1 fl (7.5-11.1); NEUT % 53.1 % (42.8-82.8); PLATELET COUNT 222 10^3/uL (134-434); RBC 3.55 M/mm3 (3.60-5.2); RDW 13.5 % (11.6-15.6); WHITE BLOOD COUNT 4.5 K/mm3 (4.0-10.0)
[2023-03-26 09:37] LABS: POTASSIUM 4.3 mmol/L (3.5-5.1)
[2023-03-26 09:43] LABS: BLOOD UREA NITROGEN 7.8 mg/dL (7-18); CALCIUM 9.2 mg/dL (8.5-10.1); MAGNESIUM 1.5 mg/dL (1.8-2.4)
[2023-03-26 09:45] LABS: CREATININE 1.1 mg/dL (0.55-1.3)
[2023-03-26] MEDS: FOLIC ACID 1 MG TABLET (FP) PO SCH (09:46)
[2023-03-26] MEDS: LISINOPRIL 20 MG TABLET PO SCH (09:46)
[2023-03-26 09:47] LABS: BILIRUBIN,TOTAL 0.3 mg/dL (0.2-1); PHOSPHOROUS 3.2 mg/dL (2.5-4.9); TOT PROT 6.3 g/dl (6.4-8.2)
[2023-03-26] MEDS ORDERED: MUPIROCIN 2% TOPICAL OINTMENT FOR DECOLONIZATION NS SCH (10:00)
[2023-03-26] MEDS ORDERED: THIAMINE HCL 200 MG/2 ML VIAL IVPB SCH (10:00)
[2023-03-26] MEDS ORDERED: THIAMINE HCL 500 MG in SODIUM CHLORIDE 250 ML IM SCH (10:00)
[2023-03-26 10:41] LABS: ALBUMIN 2.9 g/dl (3.4-5.0)
[2023-03-26] MEDS ORDERED: THIAMINE HCL 500 MG in SODIUM CHLORIDE 250 ML IVPB SCH (10:50)
[2023-03-26] MEDS: AMITRIPTYLINE HCL 25 MG TABLET PO SCH (11:29)
[2023-03-26] MEDS ORDERED: MAGNESIUM OXIDE 400 MG TABLET (FP) PO ONE (11:47)
[2023-03-26] MEDS ORDERED: AMITRIPTYLINE HCL 25 MG TABLET PO SCH (22:00)
[2023-03-26] MEDS ORDERED: CHLORHEXIDINE GLUCONATE 4% CLEANSER FOR DECOLONIZATION TP SCH (22:00)
== END 2023-03-26 11:31 | disposition home or self-care (01) | DRG 816 ==
LOC: JER 15:16 → JERBED 18:02 → JICU 19:50 → J5S 03-25 23:11
PROVIDERS: ADMIT Internal Medicine Pulmonary Disease; ATTEND Internal Medicine
DX: T40.1X1A Poisoning by heroin, accidental (unintentional), initial encounter (principal); F11.20 Opioid dependence, uncomplicated; M62.82 Rhabdomyolysis; J81.1 Chronic pulmonary edema; N17.9 Acute kidney failure, unspecified; W18.30XA Fall on same level, unspecified, initial encounter; H54.3 Unqualified visual loss, both eyes; E66.01 Morbid (severe) obesity due to excess calories; Z68.41 Body mass index [BMI] 40.0-44.9, adult; F41.8 Other specified anxiety disorders; H40.9 Unspecified glaucoma; E86.0 Dehydration; Y92.098 Other place in other non-institutional residence as the place of occurrence of the external cause
CPT/HCPCS: 0241U-QW; 36415; 70450-TC; 71045-TC-FY; 72125-TC; 76775-TC; 80048; 80053; 80307; 81003; 82140; 82436; 82550; 82553; 82803; 82962; 83036; 83605; 83735; 83880; 84100; 84133; 84300; 84443; 84484; 85025; 85027; 85730; 86850; 86900; 86901; 87086; 93005; 93010; 97116-GP; 97162-GP; 99291; J1644

== ENCOUNTER 2023-09-17 12:42 | Emergency (ER) | payer OTHER ==
[2023-09-17 12:53] VITALS: BP 135/89; PULSE 90; RESP 18; TEMP 97; BMI 28.3
[2023-09-17] MEDS ORDERED: ACETAMINOPHEN 500 MG TABLET (FP) PO ONE (16:06)
[2023-09-17] MEDS ORDERED: ACETAMINOPHEN 500 MG TABLET (FP) ONE (17:04)
== END 2023-09-17 17:21 | disposition home or self-care (01) ==
LOC: JERFT 12:42
DX: M79.645 Pain in left finger(s) (principal); W25.XXXA Contact with sharp glass, initial encounter
CPT/HCPCS: 73130-TC-LT-FY; 99283-25

== ENCOUNTER 2023-11-03 12:53 | Observation (INO) | payer OTHER ==
[2023-11-03 13:25] VITALS: BMI 33.5
[2023-11-03] MEDS ORDERED: ACETAMINOPHEN 500 MG TABLET (FP) ONE (15:35)
[2023-11-03] MEDS: ACETAMINOPHEN 500 MG TABLET (FP) PO ONE (15:40)
[2023-11-03 15:45] LABS: BASO % 0.6 % (0-2.0); EOS % 2.8 % (0-4.5); HEMATOCRIT 35.7 % (32.4-45.2); HEMOGLOBIN 12.1 GM/dL (10.7-15.3); MCH 32.7 pg (25.7-33.7); MCHC 33.9 g/dl (32.0-36.0); MEAN CELL VOLUME 96.4 fl (80-96); MEAN PLT VOLUME 8.5 fl (7.5-11.1); MONO % 4.9 % (3.8-10.2); NEUT % 56.7 % (42.8-82.8); PLATELET COUNT 266 10^3/uL (134-434); RDW 14.6 % (11.6-15.6); WHITE BLOOD COUNT 9.1 K/mm3 (4.0-10.0)
[2023-11-03 16:08] LABS: POTASSIUM 4.2 mmol/L (3.5-5.1)
[2023-11-03 16:10] LABS: CALCIUM 9.1 mg/dL (8.5-10.1)
[2023-11-03 16:11] LABS: BLOOD UREA NITROGEN 12.4 mg/dL (7-18)
[2023-11-03 16:14] LABS: CREATININE 1.1 mg/dL (0.55-1.3)
[2023-11-03 16:16] LABS: BILIRUBIN,TOTAL 0.3 mg/dL (0.2-1); TOT PROT 7.3 g/dl (6.4-8.2)
[2023-11-03 16:40] LABS: ERYTHROCYTE SEDIMENTATION RATE 19 mm/hr (0-30)
[2023-11-03] MEDS: VANCOMYCIN HCL 1,500 MG in DEXTROSE 5%-WATER - 500 ML IVPB ONE (18:19)
[2023-11-03] MEDS: VANCOMYCIN PREMIX 1.5 GM 1,500 MG/300 ML BAG IVPB ONE (18:26)
[2023-11-03] MEDS: CEFAZOLIN 1 GM in DEXTROSE 5%-WATER - 50 ML IVPB SCH (20:29)
[2023-11-03] MEDS ORDERED: ceFAZolin SODIUM 1 GM VIAL ONE (20:30)
[2023-11-03] MEDS ORDERED: ACETAMINOPHEN 325 MG TABLET (FP) ONE (23:30)
[2023-11-03] MEDS: ACETAMINOPHEN 500 MG TABLET (FP) PO STA (23:33)
[2023-11-04 08:50] LABS: HEMATOCRIT 32.5 % (32.4-45.2); HEMOGLOBIN 10.9 GM/dL (10.7-15.3); MCH 32.8 pg (25.7-33.7); MCHC 33.6 g/dl (32.0-36.0); MEAN CELL VOLUME 97.6 fl (80-96); MEAN PLT VOLUME 8.9 fl (7.5-11.1); PLATELET COUNT 194 10^3/uL (134-434); RBC 3.33 M/mm3 (3.60-5.2); RDW 14.5 % (11.6-15.6); WHITE BLOOD COUNT 5.7 K/mm3 (4.0-10.0)
[2023-11-04 09:03] LABS: POTASSIUM 3.9 mmol/L (3.5-5.1)
[2023-11-04 09:08] LABS: BLOOD UREA NITROGEN 11.7 mg/dL (7-18)
[2023-11-04 09:09] LABS: ALBUMIN 3.3 g/dl (3.4-5.0); CALCIUM 8.4 mg/dL (8.5-10.1)
[2023-11-04 09:11] LABS: CREATININE 1.1 mg/dL (0.55-1.3)
[2023-11-04 09:12] LABS: BILIRUBIN,TOTAL 0.2 mg/dL (0.2-1)
[2023-11-04 09:13] LABS: TOT PROT 6.2 g/dl (6.4-8.2)
[2023-11-04] MEDS: ACETAMINOPHEN 500 MG TABLET (FP) PO ONE (10:50)
[2023-11-04] MEDS: ENOXAPARIN NA (PORCINE) 40 MG/0.4 ML DISP.SYRIN SQ SCH (11:18)
[2023-11-04] MEDS: ACETAMINOPHEN WITH CODEINE 300MG/30MG TABLET PO ONE ×2 (11:36→18:58)
[2023-11-04] MEDS: LISINOPRIL 20 MG TABLET PO SCH (12:40)
[2023-11-04] MEDS: PIPERACILLIN/TAZOB 3.375 GM 3.375 GM in DEXTROSE 5%-WATER - 50 ML IVPB SCH (17:56)
[2023-11-04] MEDS: MELATONIN 5 MG TABLETS PO PRN (21:59)
[2023-11-05 08:48] VITALS: RESP 18
[2023-11-05] MEDS: ACETAMINOPHEN 325 MG TABLET (FP) PO PRN (09:47)
[2023-11-05] MEDS: methaDONE HCL 40 MG DISPERSABLE TABLET PO SCH (09:48)
[2023-11-05 09:52] LABS: BASO % 0.3 % (0-2.0); EOS % 3.9 % (0-4.5); HEMATOCRIT 36.4 % (32.4-45.2); HEMOGLOBIN 12.1 GM/dL (10.7-15.3); LYMPH % 25.4 % (8-40); MCH 32.4 pg (25.7-33.7); MCHC 33.2 g/dl (32.0-36.0); MEAN CELL VOLUME 97.4 fl (80-96); MONO % 4.2 % (3.8-10.2); NEUT % 66.2 % (42.8-82.8); PLATELET COUNT 256 10^3/uL (134-434); RBC 3.73 M/mm3 (3.60-5.2); RDW 14.3 % (11.6-15.6); WHITE BLOOD COUNT 7.1 K/mm3 (4.0-10.0)
[2023-11-05 10:38] LABS: POTASSIUM 4.5 mmol/L (3.5-5.1)
[2023-11-05 10:46] LABS: BLOOD UREA NITROGEN 12.9 mg/dL (7-18)
[2023-11-05 10:47] LABS: ALBUMIN 3.5 g/dl (3.4-5.0)
[2023-11-05 10:52] LABS: BILIRUBIN,TOTAL 0.2 mg/dL (0.2-1)
[2023-11-05 10:58] LABS: CALCIUM 9.2 mg/dL (8.5-10.1)
[2023-11-05] MEDS: VANCOMYCIN/WATER FOR INJ (PEG) 1,000 MG/200 ML BAG IVPB SCH (11:19)
[2023-11-05] MEDS: diphenhydrAMINE HCL 25 MG CAPSULE (FP) PO PRN (17:39)
[2023-11-05] MEDS: LATANOPROST 0.005% OPHTH SOLN 2.5ML BOTTLE OU SCH (22:24)
[2023-11-06] MEDS: predniSONE 20 MG TABLET (UD) PO ONE (10:50)
[2023-11-06] MEDS: diphenhydrAMINE HCL 25 MG CAPSULE (FP) PO ONE ×2 (10:52→13:53)
[2023-11-06 13:01] VITALS: BP 112/69; PULSE 88; TEMP 97.3
[2023-11-06] MEDS: methylPREDNISolone NA SUCC 40 MG/1 ML VIAL IVPUSH ONE (13:55)
[2023-11-06] MEDS: CLINDAMYCIN HCL 150 MG CAPSULE (FP) PO SCH (13:55)
== END 2023-11-06 15:41 | disposition home or self-care (01) ==
LOC: JER 12:53 → INTOOBSV 16:32 → JERBED 16:32 → UNDOADMOB 16:32 → JERBED 18:27 → J8W 11-04 02:41 → J7W 11-05 20:33
PROVIDERS: ADMIT Internal Medicine; ATTEND Nurse Practitioner Family
PROC: 3E03329 Introduction of Other Anti-infective into Peripheral Vein, Percutaneous Approach (ICD-10-PCS; principal; 2023-11-03)
PROC: 3E033GC Introduction of Other Therapeutic Substance into Peripheral Vein, Percutaneous Approach (ICD-10-PCS; 2023-11-03)
PROC: 3E023GC Introduction of Other Therapeutic Substance into Muscle, Percutaneous Approach (ICD-10-PCS; 2023-11-03)
PROC: 3E033GC Introduction of Other Therapeutic Substance into Peripheral Vein, Percutaneous Approach (ICD-10-PCS; 2023-11-03)
DX: S62.601A Fracture of unspecified phalanx of left index finger, initial encounter for closed fracture (principal); L03.012 Cellulitis of left finger; E66.9 Obesity, unspecified; X58.XXXA Exposure to other specified factors, initial encounter; Y93.89 Activity, other specified; Y92.89 Other specified places as the place of occurrence of the external cause; I10 Essential (primary) hypertension; H40.9 Unspecified glaucoma; F11.90 Opioid use, unspecified, uncomplicated; Z86.14 Personal history of Methicillin resistant Staphylococcus aureus infection; F17.200 Nicotine dependence, unspecified, uncomplicated; Z88.8 Allergy status to other drugs, medicaments and biological substances
CPT/HCPCS: 0241U-QW; 36415; 73140-TC-RT-FY; 80053; 83036; 85025; 85027; 85651; 86140; 87040; 87070; 87186; 87205; 93005; 93010; 96365; 96366; 96367; 96372; 96375; 99285-25; G0378

== ENCOUNTER 2023-11-25 14:10 | Emergency (ER) | payer OTHER ==
[2023-11-25 14:46] VITALS: BP 114/50; PULSE 74; RESP 18; TEMP 99; BMI 39.0
[2023-11-25] MEDS ORDERED: TETRACAINE 0.5% OPHTH SOLN 2 ML BOTTLE ONE (16:01)
[2023-11-25] MEDS: TETRACAINE 0.5% HCL 0.6ML DROPPER.BOTTLE OS ONE (16:48)
[2023-11-25] MEDS ORDERED: IBUPROFEN 400 MG TABLET (FP) PO ONE (18:05)
[2023-11-25] MEDS: IBUPROFEN 400 MG TABLET (FP) PO ONE (18:09)
== END 2023-11-25 18:40 | disposition home or self-care (01) ==
LOC: JER 14:10
DX: H54.1213 Low vision right eye category 1, blindness left eye category 3 (principal)
CPT/HCPCS: 99283-25